=== PATIENT | male | born 2005 | race Caucasian/White ===

== ENCOUNTER 2024-04-19 21:05 | Emergency (ER) | payer OTHER, SELFPAY ==
[2024-04-19 21:08] VITALS: BP 125/76; PULSE 65; RESP 16; TEMP 36.7; O2SAT 97; BMI 22.8
--- NOTE | 2024-04-19 21:45 | ED_ITS ---
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 Patient states that he has not had any issues for several years and has been eating seafood without difficulty, today had a reaction reminiscent to when he was younger. He complains of very itchy hives covering most of his body, he denies swelling of his lips or tongue. No difficulty breathing or swallowing. He does feel like his nostrils are little swollen, but again he is not having any d ifficulty breathing. Related Data Previous Rx's ?Medication ?Instructions ?Recorded prednisone 20 mg tablet 40 mg (2 x 20 mg) PO DAILY 3 days 04/19/24 #6 tabs Allergies Allergy/AdvReac Type Severity Reaction Status Date / Time shrimp Allergy Intermediate Hives Uncoded 04/19/24 21:13 Review of Systems Status of ROS: Reports: 6 or more systems reviewed and unremarkable except as noted in History and below [facility] Medical History No significant past medical history Surgical History H/O knee surgery ?Z98.890 - Other specified postprocedural states (ICD-10) Social History Smoking Status: Never smoker Exam Narrative: Exam Narrative: Well-nourished well-developed patient in no acute distress. Alert and oriented. Answers questions appropriately. Mood and affect are appropriate. Thoughts are goal oriented and rational. No tangential or magical thinking noted. Patient speaks in full sentences without needing to catch his breath. Speech is not slurred or pressured. Voice sounds normal. HEENT: Normocephalic atraumatic. Pupils are equally round reactive to light. Extraocular muscles are intact. Conjunctivae are moist without any icterus noted. Moist mucous membranes. Posterior pharynx is normal. Neck is soft without any lymphadenopathy or thyromegaly. No masses are appreciated. Normal lips, tongue and soft palate. Cardiovascular: Heart is regular rate and rhythm . Lungs: Clear to auscultation bilaterally no wheezes rhonchi or rales are appreciated. Abdomen: Soft and nontender nondistended with normal bowel sounds. Extremities: Bilateral lower extremities are without edema. Normal DP and PT pulses. Skin: Well perfused, hives covering upper extremities bilaterally, trunk and thighs. Const: Vital Signs, click to edit/add: Vital Signs - 24 hr 04/19/24 21:08 04/19/24 22:23 Temperature 98.0 F 97.6 F Pulse Rate [Pulse Oximeter] 65 67 Respiratory Rate 16 16 Blood Pressure [[facility]] 125/76 119/66 Pulse Oximetry 97 99 Oxygen Delivery Me thod Room Air Room Air Course Course ED Course: IV is established and patient is given 25 mg of IV Benadryl, 125 mg of IV Solu- Medrol, oral Pepcid and epinephrine given his sensation that his nostrils are swelling. Patient felt significantly better, hives resolved completely. Patient was monitored for 2 hours. Vital Signs Vital signs: Initial Vital Signs Temperature 98.0 F 04/19/24 21:08 Temperature Source Temporal Artery Scan 04/19/24 21:08 Pulse Rate 65 04/19/24 21:08 Pulse Rhythm Regular 04/19/24 21:08 Respiratory Rate 16 04/19/24 21:08 Blood Pressure 125/76 04/19/24 21:08 Blood Pressure Mean 92 04/19/24 21:08 Blood Pressure Position Sitting 04/19/24 21:08 Pulse Oximetry 97 04/19/24 21:08 Oxygen Delivery Method Room Air 04/19/24 21:08 Vital Signs Temperature 98.0 F 04/19/24 21:08 Pulse Rate 65 04/19/24 21:08 Respiratory Rate 16 04/19/24 21:08 Blood Pressure 125/76 04/19/24 21:08 Pulse Oximetry 97 04/19/24 21:08 Oxygen Delivery Method Room Air 04/19/24 21:08 Temperature 97.6 F 04/19/24 22:23 Pulse Rate 67 04/19/24 22:23 Respiratory Rate 16 04/19/24 22:23 Blood Pressure 119/66 04/19/24 22:23 Pulse Oximetry 99 04/19/24 22:23 Oxygen Delivery Method Room Air 04/19/24 22:23 Medications Administered Medications: Generic Name Dose Route Start Last Admin Trade Name Tyrese PRN Reason Stop Dose Admin Epinephrine HCl 0.3 mg 04/19/24 21:46 04/19/24 21:57 Epinephrine 0.3 Mg Pen IM 04/19/24 21:47 0.3 mg ONCE ONE Administration Discontinued Medications Generic Name Dose Route Start Last Admin Trade Name Tyrese PRN Reason Stop Dose Admin Diphenhydramine HCl 25 mg 04/19/24 21:30 04/19/24 21:46 Diphenhydramine 50 Mg/Ml Inj IVP 04/19/24 21:31 25 mg ONCE ONE Administration Famotidine 20 mg 04/19/24 21:30 04/19/24 21:46 Famotidine 20 Mg Tablet PO 04/19/24 21:31 20 mg ONCE ONE Administration Methylprednisolone Sodium Succinate 125 mg 04/19/24 21:30 04/19/24 21:46 Methylprednisolone Sod Succ 62.5 Mg/Ml (125) IVP 04/19/24 21:31 125 mg ONCE ONE Administration Medical Decision Making MDM Narrative Medical decision making narrative: 18-year-old male with reaction to shrimp. In the past, patient has had a reoccurrence of his reactions several hours after treatment. Because of this we will send the patient home on another 3 days of prednisone and Benadryl. Discharge Plan Discharge Clinical Impression: Allergic reaction Patient Disposition: Home, Self-Care Condition: Improved Additional Instructions: Take daily steroid (take your 1st dose tomorrow morning) and nightly Benadryl 25 mg (can purchase [id number]) for the next 3 days. Prescriptions: New prednisone 20 mg tablet 40 mg PO DAILY 3 Days Qty: 6 0RF Follow Up/Referrals: Provider,Not a Local [Primary Care Provider] - Stand Alone Forms: [employer] Info Instructions
[2024-04-19] MEDS: METHYLPREDNISOLONE SOD SUCC 62.5 MG/ML (125) 125 MG IVP (21:46)
[2024-04-19] MEDS: FAMOTIDINE 20 MG TABLET PO (21:46)
[2024-04-19] MEDS: diphenhydrAMINE 50 MG/ML inj 25 MG IVP (21:46)
[2024-04-19] MEDS: EPINEPHrine 0.3 MG PEN IM (21:57)
[2024-04-19 22:23] VITALS: BP 119/66; PULSE 67; RESP 16; TEMP 36.4; O2SAT 99
--- NOTE | 2024-04-19 23:40 | PC.NURSE ---
assumed care of patient from Kingsley WHITE at 2300
== END 2024-04-19 23:16 | disposition home or self-care (01) ==
PROVIDERS: Emergency Provider Family Medicine
DX: T78.1XXA Other adverse food reactions, not elsewhere classified, initial encounter (principal); L50.0 Allergic urticaria
CPT/HCPCS: 96374; 96375; 99284; A9270; J0171; J1200; J2919